=== PATIENT | female | born 1955 | race Caucasian/White ===

== ENCOUNTER 2016-07-14 18:23 | Emergency (ER) | payer MEDICARE, OTHER ==
[~2016-07-14 18:23] MED LIST: ANAF PO; ASAB PO; ATARAX50B PO; INTUNIV2 MG PO; LEVOTHYROXIN150 MCG PO; LEVOTHYROXIN175 MCG PO; NORCO1 TAB PO; PREMPRO1 TA2 PO; PRILOSEC40 MG PO; PROZAC40 MG PO; REMERON30 MG PO; SEROQUEL400 MG PO; SEROQUEL50 MG PO; TOPAMAX100 PO; TRILEP300 PO; XANAX1 MG PO; [UNRECOGNIZED DRUG - OTHER] PO
== END 2016-07-14 18:45 | disposition home or self-care (01) ==
LOC: ER 18:23
DX: S83.91XA Sprain of unspecified site of right knee, initial encounter (principal); M54.9 Dorsalgia, unspecified; F32.9 Major depressive disorder, single episode, unspecified; E03.9 Hypothyroidism, unspecified; Z88.0 Allergy status to penicillin; W19.XXXA Unspecified fall, initial encounter
CPT/HCPCS: 72072; 72100; 73560-RT; 96372; 99284; J1170

== ENCOUNTER 2016-07-22 17:50 | Emergency (ER) | payer MEDICARE, OTHER | END 2016-07-22 18:44 | disposition home or self-care (01) | LOC: ER 17:50 | DX: S30.0XXA Contusion of lower back and pelvis, initial encounter (principal); F41.9 Anxiety disorder, unspecified; F32.9 Major depressive disorder, single episode, unspecified; K21.9 Gastro-esophageal reflux disease without esophagitis; I10 Essential (primary) hypertension; Z88.0 Allergy status to penicillin; Z88.5 Allergy status to narcotic agent; Z79.899 Other long term (current) drug therapy; Z79.82 Long term (current) use of aspirin; W19.XXXA Unspecified fall, initial encounter | CPT/HCPCS: 72100; 99284 ==

== ENCOUNTER 2016-10-15 16:30 | Emergency (ER) | payer MEDICARE, OTHER | END 2016-10-15 17:28 | disposition home or self-care (01) | LOC: ER 16:30 | DX: S86.111A Strain of other muscle(s) and tendon(s) of posterior muscle group at lower leg level, right leg, initial encounter (principal); Z88.0 Allergy status to penicillin; Z88.5 Allergy status to narcotic agent; Z79.82 Long term (current) use of aspirin; Z79.899 Other long term (current) drug therapy; X58.XXXA Exposure to other specified factors, initial encounter | CPT/HCPCS: 99283 ==